=== PATIENT | male | born 2000 | race Caucasian/White ===

== ENCOUNTER 2024-03-29 05:26 | Emergency (ER) | payer OTHER ==
[2024-03-29 05:30] VITALS: BMI 27.3
[2024-03-29] MEDS ORDERED: ONDANSETRON 4 MG/2 ML VIAL ONE ×2 (05:40→08:34)
[2024-03-29] MEDS: ONDANSETRON 4 MG/2 ML VIAL IVPUSH ONE ×2 (05:55→08:43)
[2024-03-29] MEDS: SODIUM CHLORIDE 1,000 ML IV STA (05:55)
[2024-03-29 06:51] LABS: CHLORIDE 104 mmol/L (98-107); POTASSIUM 4.2 mmol/L (3.5-5.1); SODIUM 136 mmol/L (136-145)
[2024-03-29 06:53] LABS: ALBUMIN 4.5 g/dl (3.4-5.0); ANION GAP 15 mmol/L (4-13); BLOOD UREA NITROGEN 18.5 mg/dL (7-18); CO2 17 mmol/L (21-32); GLUCOSE,RANDOM 179 mg/dL (74-106)
[2024-03-29 06:54] LABS: MAGNESIUM 1.8 mg/dL (1.8-2.4)
[2024-03-29 06:56] LABS: CREATININE 1.2 mg/dL (0.55-1.3); SGOT/AST 84 U/L (15-37); SGPT/ALT 187 U/L (13-61)
[2024-03-29 06:58] LABS: BILIRUBIN,TOTAL 2.3 mg/dL (0.2-1); TOT PROT 8.1 g/dl (6.4-8.2)
[2024-03-29 06:59] LABS: ALK PHOS 70 U/L (45-117)
[2024-03-29 07:17] LABS: HEMATOCRIT 48.2 % (35.4-49); HEMOGLOBIN 16.1 GM/dL (11.7-16.9); MCH 28.8 pg (25.7-33.7); MCHC 33.4 g/dl (32.0-35.9); MEAN CELL VOLUME 86.2 fl (80-96); MEAN PLT VOLUME 9.7 fl (7.5-11.1); PLATELET COUNT 256 10^3/uL (134-434); RBC 5.59 M/mm3 (4.00-5.60); RDW 13.7 % (11.9-15.9)
[2024-03-29] MEDS ORDERED: ACETAMINOPHEN INJECTION 100 ML IVPB ONE (08:34)
[2024-03-29] MEDS: SODIUM CHLORIDE 0.9% 500 ML INFUS.BAG IV ONE (08:43)
[2024-03-29] MEDS: ACETAMINOPHEN 1000 MG/100 ML BAG IVPB ONE (08:43)
[2024-03-29] MEDS ORDERED: NAPH,MB-DB/K PH,MBDB POWDER PACKET ONE (09:53)
[2024-03-29] MEDS: NAPH,MB-DB/K PH,MBDB POWDER PACKET PO ONE (09:56)
[2024-03-29 10:38] LABS: URINE APPEARANCE CLEAR; URINE BILIRUBIN NEGATIVE (NEGATIVE); URINE COLOR YELLOW; URINE GLUCOSE (UA) NEGATIVE (NEGATIVE); URINE KETONE NEGATIVE (NEGATIVE); URINE LEUK ESTERASE NEGATIVE (NEGATIVE); URINE NITRITE NEGATIVE (NEGATIVE); URINE PROTEIN NEGATIVE (NEGATIVE); URINE UROBILINOGEN 0.2 mg/dL (0.2-1.0)
[2024-03-29 12:03] VITALS: BP 127/80; PULSE 115; RESP 18; TEMP 99
== END 2024-03-29 13:08 | disposition left against medical advice (07) ==
LOC: JER 05:26
PROC: 3E030NZ Introduction of Analgesics, Hypnotics, Sedatives into Peripheral Vein, Open Approach (ICD-10-PCS; principal; 2024-03-29)
PROC: 3E030GC Introduction of Other Therapeutic Substance into Peripheral Vein, Open Approach (ICD-10-PCS; 2024-03-29)
PROC: 3E030GC Introduction of Other Therapeutic Substance into Peripheral Vein, Open Approach (ICD-10-PCS; 2024-03-29)
PROC: 3E0337Z Introduction of Electrolytic and Water Balance Substance into Peripheral Vein, Percutaneous Approach (ICD-10-PCS; 2024-03-29)
DX: R11.2 Nausea with vomiting, unspecified (principal); R10.84 Generalized abdominal pain; R00.0 Tachycardia, unspecified; R50.9 Fever, unspecified
CPT/HCPCS: 36415; 74177-TC; 76705-TC; 80053; 81003; 83690; 83735; 84100; 85027; 87086; 99285-25; J0131; Q9967

== ENCOUNTER 2024-04-22 14:25 | Inpatient (IN) | payer OTHER ==
[2024-04-22 14:43] VITALS: RESP 18; BMI 24.4
[2024-04-22] MEDS ORDERED: ACETAMINOPHEN INJECTION 100 ML IVPB ONE (15:27)
[2024-04-22] MEDS ORDERED: METOCLOPRAMIDE HCL INJECTION 10 MG/2 ML VIAL ONE (15:27)
[2024-04-22] MEDS: ACETAMINOPHEN 1000 MG/100 ML BAG IVPB ONE (15:58)
[2024-04-22] MEDS: SODIUM CHLORIDE 0.9% 500 ML INFUS.BAG IV ONE (15:58)
[2024-04-22] MEDS: METOCLOPRAMIDE HCL INJECTION 10 MG/2 ML VIAL IVPB ONE (15:59)
[2024-04-22 16:01] LABS: BASO % 0.5 % (0-2.0); EOS % 1.7 % (0-4.5); HEMATOCRIT 44.7 % (35.4-49); HEMOGLOBIN 15.3 GM/dL (11.7-16.9); LYMPH % 23.2 % (8-40); MCH 28.9 pg (25.7-33.7); MCHC 34.3 g/dl (32.0-35.9); MEAN CELL VOLUME 84.4 fl (80-96); MEAN PLT VOLUME 8.4 fl (7.5-11.1); MONO % 5.6 % (3.8-10.2); PLATELET COUNT 229 10^3/uL (134-434); RBC 5.29 M/mm3 (4.00-5.60); RDW 13.4 % (11.9-15.9); WHITE BLOOD COUNT 11.2 K/mm3 (4.0-10.0)
[2024-04-22 16:09] LABS: INR 1.16 (0.83-1.09); PROTHROMBIN TIME (PATIENT) 13.1 SEC (9.7-13.0)
[2024-04-22 16:12] LABS: ACTIVATED PTT 33.7 SECONDS (25.2-36.5)
[2024-04-22 16:29] LABS: ALBUMIN 4.4 g/dl (3.4-5.0); CALCIUM 9.2 mg/dL (8.5-10.1)
[2024-04-22 16:30] LABS: BLOOD UREA NITROGEN 11.1 mg/dL (7-18); MAGNESIUM 2.2 mg/dL (1.8-2.4)
[2024-04-22 16:33] LABS: CREATININE 0.8 mg/dL (0.55-1.3); PHOSPHOROUS 3.1 mg/dL (2.5-4.9)
[2024-04-22 16:34] LABS: BILIRUBIN,TOTAL 1.4 mg/dL (0.2-1); TOT PROT 7.8 g/dl (6.4-8.2)
[2024-04-22] MEDS ORDERED: KETOROLAC TROMETHAMINE 15 MG/ML VIAL ONE (21:20)
[2024-04-22] MEDS: KETOROLAC TROMETHAMINE 15 MG/ML VIAL IVPUSH ONE (21:25)
[2024-04-22] MEDS ORDERED: MELATONIN 5 MG TABLETS ONE (21:29)
[2024-04-22] MEDS: MELATONIN 5 MG TABLETS PO ONE (21:30)
[2024-04-23] MEDS: ALBUTEROL SO4 2.5/IPRATROPIUM 0.5 INH SOL 3 ML VIAL.NEB. NEB ONE (01:07)
[2024-04-23 02:39] VITALS: BP 145/78; PULSE 88; TEMP 97.5
[2024-04-23] MEDS ORDERED: ENOXAPARIN NA (PORCINE) 40 MG/0.4 ML DISP.SYRIN SQ SCH (10:00)
== END 2024-04-23 01:36 | disposition left against medical advice (07) | DRG 144 ==
LOC: JER 14:25 → JERBED 20:39 → J8W 04-23 00:28
PROVIDERS: ADMIT Internal Medicine; ATTEND Internal Medicine
DX: R22.2 Localized swelling, mass and lump, trunk (principal); K75.9 Inflammatory liver disease, unspecified; R51.9 Headache, unspecified; R74.01 Elevation of levels of liver transaminase levels; K76.0 Fatty (change of) liver, not elsewhere classified; R16.0 Hepatomegaly, not elsewhere classified; R42 Dizziness and giddiness; R10.32 Left lower quadrant pain; J45.909 Unspecified asthma, uncomplicated; R94.5 Abnormal results of liver function studies
CPT/HCPCS: 36415; 70450-TC; 71275-TC; 74177-TC; 80053; 82550; 82553; 83735; 84100; 84439; 84443; 84484; 85025; 85610; 85730; 86850; 86900; 86901; 93005; 93010; 94640; 99285-25; J0131